=== PATIENT | female | born 1980 ===

== ENCOUNTER 2017-10-13 14:54 | Emergency (ER) | payer OTHER ==
[2017-10-13 15:22] VITALS: BP 111/76
--- NOTE | 2017-10-14 21:33 | UC ---
Throat Pain/Nasal Baltazar HPI - HPI Summary HPI Summary: 36 year old female with no PMH, no meds, no recent abx. C/O 2 days of thoat pain with difficulty swallowing, able to hold down liquids, was seen by school nurse today, rec'd UC. no NVCD (h/o celiac disease) + ear fullness, no fever , no chills. + fatigue. - History of Current Complaint Hx Obtained From: Patient Onset/Duration: Sudden Onset, Lasting Days - 2 days Severity: Moderate Pain Intensity: 5 Pain Scale Used: 0-10 Numeric Cough: None Associated Signs & Symptoms: Positive: Dysphagia <Lorena Jerry - Last Filed: 10/14/17 21:26> <Bonnie So - Last Filed: 10/15/17 15:38> - History of Current Complaint Chief Complaint: UCRespiratory Stated Complaint: SORE THROAT Time Seen by Provider: 10/13/17 16:16 - Allergies/Home Medications Allergies/Adverse Reactions: Allergies Allergy/AdvReac Type Severity Reaction Status Date / Time gluten Allergy GI Upset Verified 10/13/17 15:23 nickel Allergy Rash And Verified 10/13/17 15:23 Itching Penicillins Allergy Unknown Verified 10/13/17 15:23 Reaction Details Sulfa (Sulfonamide Allergy Unknown Verified 10/13/17 15:23 Antibiotics) Reaction Details Home Medications: Home Medications NK [No Home Medications Reported] 10/13/17 [History Confirmed 10/13/17] PMH/Surg Hx/FS Hx/Imm Hx Previously Healthy: Yes - celiac disease - Surgical History Surgical History: None - Social History Alcohol Use: Rare Substance Use Type: None Smoking Status (MU): Never Smoked Tobacco <Lorena Jerry - Last Filed: 10/14/17 21:26> Review of Systems Constitutional: Fatigue ENT: Sore Throat, Ear Ache - ear fullness Is Patient Immunocompromised?: No All Other Systems Reviewed And Are Negative: Yes <Lorena Jerry - Last Filed: 10/14/17 21:26> Physical Exam Triage Information Reviewed: Yes Appearance: Well-Appearing, No Pain Distress, Well-Nourished Vital Signs: Initial Vital Signs Temp 98.6 F 10/13/17 15:13 Pulse 75 10/13/17 15:13 Resp 18 10/13/17 15:13 BP 111/76 10/13/17 15:13 Pulse Ox 98 10/13/17 15:13 Vital Signs Reviewed: Yes Eyes: Positive: Conjunctiva Clear ENT: Positive: Pharyngeal erythema - minimal no exudates, mild increased tonsillar swelling L sided,, TMs normal, Sinus tenderness, Uvula midline. Negative: Hoarse voice Neck: Positive: Supple, Nontender, Enlarged Nodes @ - bl submand LAD, L>R Respiratory: Positive: Chest non-tender, Lungs clear, Normal breath sounds, No respiratory distress, No accessory muscle use Cardiovascular: Positive: RRR, No Murmur, Pulses Normal Musculoskeletal Exam: Normal Neurological Exam: Normal Psychological Exam: Normal Skin Exam: Normal <Mary Jerryica - Last Filed: 10/14/17 21:26> Vital Signs: Initial Vital Signs Temp 98.6 F 10/13/17 15:13 Pulse 75 10/13/17 15:13 Resp 18 10/13/17 15:13 BP 111/76 10/13/17 15:13 Pulse Ox 98 10/13/17 15:13 <Bonnie So - Last Filed: 10/15/17 15:38> Throat Pain/Nasal Course/Dx - Course Course Of Treatment: rapid strep negative, no abscess seen likely viral pharyngitis - Differential Dx/Diagnosis Differential Diagnosis/HQI/PQRI: Laryngitis, Pharyngitis Provider Diagnoses: viral pharyngitis <CésarrjLorena - Last Filed: 10/14/17 21:26> Discharge - Sign-Out/Discharge Documenting (check all that apply): Discharge - Billing Disposition and Condition Condition: GOOD Disposition: HOME <RosalinoLorena - Last Filed: 10/14/17 21:26> - Billing Disposition and Condition Condition: GOOD Disposition: HOME <Bonnie So - Last Filed: 10/15/17 15:38> - Discharge Plan Condition: Good Disposition: HOME Patient Education Materials: Upper Respiratory Infection (DC) Forms: *School Release Referrals: Aminta Oneill MD [Primary Care Provider] - Additional Instructions: - Conservative treatment- tylenol/ motrin for pain, fever, cough drops, chloraseptic for throat pain - Follow up with primary within 2-3 days if worsening - Attestation Statement User Type: Provider - I was available for consult. This patient was seen by the [facility]. The patient was not presented to, seen by, or examined by me. -Carmencita <Bonnie So - Last Filed: 10/15/17 15:38>
== END 2017-10-13 16:40 | disposition home or self-care (01) ==
LOC: UCEAST 14:54
DX: J02.8 Acute pharyngitis due to other specified organisms (principal); H93.8X9 Other specified disorders of ear, unspecified ear; R53.83 Other fatigue; K90.0 Celiac disease; Z88.0 Allergy status to penicillin; Z88.2 Allergy status to sulfonamides
CPT/HCPCS: 87651; 99211; G0463